=== PATIENT | female | born 1990 | race Caucasian/White ===

== ENCOUNTER 2019-03-09 23:14 | Emergency (ER) | payer MEDICAID ==
[~2019-03-09] VITALS: Ht 165.1 cm; Wt 64.2 kg
[2019-03-09 23:17] VITALS: BP 130/76
[2019-03-09] MEDS ORDERED: diphenhydrAMINE 50 mg/ml inj IV STA (23:28)
[2019-03-09] MEDS ORDERED: diphenhydrAMINE 50 mg/ml inj IV ONE (23:35)
[2019-03-10] MEDS ORDERED: dexamethasone 4mg/ml inj IM ONE (00:25)
[2019-03-10] MEDS ORDERED: HYDR-3686 PO (00:47)
== END 2019-03-10 01:12 | disposition home or self-care (01) ==
LOC: ER 23:15
DX: R22.0 Localized swelling, mass and lump, head (principal); Z79.899 Other long term (current) drug therapy
CPT/HCPCS: 96372; 96374; 99283; J1100; J1200

== ENCOUNTER 2023-07-28 15:28 | Inpatient (IN) | payer MEDICAID ==
[~2023-07-28] VITALS: Ht 165.1 cm; Wt 61.4 kg
[2023-07-28] MEDS ORDERED: ondansetron/PF 4mg/2ml inj IV ONE (18:40)
[2023-07-28] MEDS ORDERED: normal saline 1000ML IV soln IVB ONE (18:40)
[2023-07-28] MEDS ORDERED: morphine 4 MG/ML inj SYRINge IV ONE (18:40)
[2023-07-28 19:12] LABS: BASOPHILS # (AUTO) 0.1 X10'3 (0-0.2); BASOPHILS % (AUTO) 0.9 % (0-1); EOSINOPHILS % (AUTO) 0.4 % (0-6); HEMATOCRIT 42.6 % (35.0-45.0); HEMOGLOBIN 13.9 g/dl (12.0-16.0); LYMPHOCYTES # (AUTO) 2.6 X10'3 (1.1-4.8); LYMPHOCYTES % (AUTO) 23.2 % (21-51); MEAN CORPUSCULAR HEMOGLOBIN 30.1 PG (27.0-31.0); MEAN CORPUSCULAR HGB CONC 32.7 g/dL (33.0-36.5); MEAN PLATELET VOLUME 7.3 FL (7.4-10.4); MONOCYTES # (AUTO) 0.9 X10'3 (0-0.9); MONOCYTES % (AUTO) 7.8 % (2-12); NEUTROPHILS # (AUTO) 7.5 X10'3 (1.8-7.7); NEUTROPHILS % (AUTO) 67.7 % (42-75); PLATELET COUNT 408 X10'3 (140-440); RED BLOOD COUNT 4.63 X10'6 (4.20-5.60); RED CELL DISTRIBUTION WIDTH 14.7 % (11.5-14.5); WHITE BLOOD COUNT 11.1 X10'3 (4.5-11.0)
[2023-07-28 19:23] LABS: HCG SERUM QL NEGATIVE
[2023-07-28 19:26] LABS: ALANINE AMINOTRANSFERASE 18 U/L (12-78); ALBUMIN 4.4 G/DL (3.4-5.0); ALBUMIN/GLOBULIN RATIO 1.3 (1.1-1.5); ALKALINE PHOSPHATASE 49 IU/L (46-116); ANION GAP 11 (8-16); ASPARTATE AMINO TRANSFERASE 15 U/L (10-37); BILIRUBIN,TOTAL 1.8 MG/DL (0.1-1.0); BLOOD UREA NITROGEN 9 MG/DL (7-18); BUN/CREATININE RATIO 10.2 (10.0-20.0); CHLORIDE 101 MMOL/L (99-107); CREATININE 0.88 MG/DL (0.40-0.90); GLUCOSE 76 MG/DL (70-104); LIPASE 61 U/L (73-393); POTASSIUM 4.1 MMOL/L (3.5-5.1); SODIUM 140 MMOL/L (135-145); TOTAL CARBON DIOXIDE 28.2 MMOL/L (24-32); TOTAL PROTEIN 7.8 G/DL (6.4-8.2); eCRCL 82 ML/MIN; eGFR 74 ML/MIN
[2023-07-28 19:29] LABS: BILIRUBIN,URINE NEGATIVE (Neg); CLARITY,URINE CLEAR (Clear); COLOR,URINE YELLOW (Yellow); GLUCOSE, URINE NEGATIVE (Neg); KETONES,URINE 40 mg/dl (Neg); LEUKOCYTE ESTERASE ,URINE NEGATIVE (Neg); NITRITES, URINE NEGATIVE (Neg); OCCULT BLOOD,URINE NEGATIVE (Neg); PROTEIN,URINE NEGATIVE (Neg); UROBILINOGEN,URINE 0.2 E.U/dL (0.2-1.0)
[2023-07-28 19:36] LABS: UA COLLECTION TYPE CLN CATCH MIDSTREAM
[2023-07-28] MEDS ORDERED: potassium Cl 20 mEq SR tablet PO PRN ×2 (21:20)
[2023-07-28] MEDS ORDERED: potassium Cl 40MEQ/1/2NS 520ml 520 ML IV PRN (21:20)
[2023-07-28] MEDS ORDERED: morphine 2 MG/ML inj. syringe IV PRN (21:20)
[2023-07-28] MEDS ORDERED: ondansetron/PF 4mg/2ml inj IV PRN (21:20)
[2023-07-28] MEDS ORDERED: acetaminophen 325mg tablet PO PRN (21:20)
[2023-07-28 22:35] VITALS: BP 118/54; PULSE 61; RESP 16; TEMP 98.1; O2SAT 99
[2023-07-28 23:30] VITALS: RESP 16; O2SAT 99
[2023-07-28] MEDS: normal saline 1000ml 1,000 ML IV SCH (23:43)
[2023-07-28] MEDS: morphine 2 MG/ML inj. syringe IV PRN (23:52)
[2023-07-29 07:49] LABS: MAGNESIUM 1.7 MG/DL (1.5-2.4); POTASSIUM 3.8 MMOL/L (3.5-5.1)
[2023-07-29 08:00] VITALS: RESP 16; O2SAT 98
[2023-07-29] MEDS: docusate sod 100mg capsule PO SCH ×3 (08:00→19:29)
[2023-07-29] MEDS: K and/or MAG REPLACEMENT MC SCH ×2 (08:00→20:00)
[2023-07-29] MEDS: normal saline 1000ml 1,000 ML IV SCH ×2 (08:33→19:06)
[2023-07-29] MEDS: morphine 2 MG/ML inj. syringe IV PRN ×4 (09:12→23:15)
[2023-07-29 09:28] LABS: THYROID STIMULATING HORMONE 1.48 ulU/ml (0.34-4.50)
[2023-07-29 10:00] VITALS: BP 106/56; PULSE 72; RESP 15; TEMP 97.9; O2SAT 99
[2023-07-29] MEDS ORDERED: pantoprazole 40mg Tablet.DR PO ONE (11:10)
[2023-07-29] MEDS ORDERED: CALC-723 PO (12:46)
[2023-07-29] MEDS ORDERED: CHLO118M PO (12:46)
[2023-07-29] MEDS ORDERED: MULT-1085 PO (12:46)
[2023-07-29] MEDS ORDERED: MEGA PO (12:46)
[2023-07-29] MEDS ORDERED: BUPIVAcaine/PF 2.5 mg/ml (0.25%) 30ml vial ONE (13:29)
[2023-07-29] MEDS ORDERED: bacitracin 15gm ointment TP ONE (13:29)
[2023-07-29] MEDS: magnesium hydroxide 30ml (MOM) UD suspension PO PRN ×2 (19:07→21:23)
[2023-07-29 22:00] VITALS: BP 138/67; PULSE 68; RESP 16; TEMP 98; O2SAT 98
[2023-07-29] MEDS ORDERED: bisacodyl 10mg suppository rectal RC PRN (23:25)
[2023-07-30] VITALS (19 sets, daily range): BP systolic 100–145; BP diastolic 46–98; PULSE 53–76; RESP 12–20; TEMP 96.7–98.4; O2SAT 96–100
[2023-07-30] MEDS: normal saline 1000ml 1,000 ML IV SCH ×3 (05:00→20:53)
[2023-07-30 05:24] LABS: MAGNESIUM 1.9 MG/DL (1.5-2.4); POTASSIUM 3.9 MMOL/L (3.5-5.1)
[2023-07-30] MEDS: K and/or MAG REPLACEMENT MC SCH ×2 (08:00→20:00)
[2023-07-30] MEDS: pantoprazole 40mg Tablet.DR PO SCH (08:07)
[2023-07-30] MEDS: docusate sod 100mg capsule PO SCH ×2 (08:07→20:39)
[2023-07-30] MEDS: morphine 2 MG/ML inj. syringe IV PRN ×3 (08:08→20:38)
[2023-07-30] MEDS ORDERED: BUPIVAcaine/PF 2.5 mg/ml (0.25%) 30ml vial ONE (10:33)
[2023-07-30] MEDS ORDERED: fentaNYL/PF 50MCG/1 ML 2ML syringe ONE (12:58)
[2023-07-30] MEDS ORDERED: propofol inj 20 ML IV ONE (12:58)
[2023-07-30] MEDS ORDERED: midazolam 1 mg/ML 2ml injection ONE (12:58)
[2023-07-30] MEDS ORDERED: ceFAZolin 1000mg inj ONE ×2 (13:09)
[2023-07-30] MEDS ORDERED: dexamethasone sod phosphate 4mg/ml inj. ONE (13:10)
[2023-07-30] MEDS ORDERED: ringers solution, lacted 1,000 ML IV SCH (13:55)
[2023-07-30] MEDS ORDERED: morphine 2 MG/ML inj. syringe IV PRN (13:55)
[2023-07-30] MEDS ORDERED: morphine 4 MG/ML inj SYRINge IV PRN (13:55)
[2023-07-30] MEDS ORDERED: meperidine/PF 25mg/ml syringe IV PRN ×3 (13:55)
[2023-07-30] MEDS ORDERED: proCHLORperazine 10 MG/2 ml inj IV PRN (13:55)
[2023-07-30] MEDS ORDERED: ondansetron/PF 4mg/2ml inj IV PRN (13:55)
[2023-07-30] MEDS ORDERED: meperidine/PF 25mg/ml syringe ONE (13:57)
[2023-07-30] MEDS ORDERED: acetaminophen 1,000mg/100ml IV 100 ML IV ONE (14:00)
[2023-07-30] MEDS ORDERED: PEG 3350/Na sulf,bicarb,Cl/KCl oral sol 4 liter bottle PO SCH (15:25)
[2023-07-30] MEDS: ketorolac trometh. 30mg/ml inj. IV SCH (19:49)
[2023-07-31 02:07] VITALS: BP 106/40; PULSE 62; RESP 18; TEMP 97.5; O2SAT 99
[2023-07-31] MEDS: ketorolac trometh. 30mg/ml inj. IV SCH ×3 (02:56→14:32)
[2023-07-31] MEDS: morphine 2 MG/ML inj. syringe IV PRN ×3 (05:18→13:26)
[2023-07-31 06:00] VITALS: BP 107/60; PULSE 56; RESP 17; TEMP 97.3; O2SAT 99
[2023-07-31] MEDS: K and/or MAG REPLACEMENT MC SCH (07:22)
[2023-07-31] MEDS: docusate sod 100mg capsule PO SCH (07:25)
[2023-07-31] MEDS: pantoprazole 40mg Tablet.DR PO SCH (07:25)
[2023-07-31] MEDS: normal saline 1000ml 1,000 ML IV SCH (09:20)
[2023-07-31 10:00] VITALS: BP 112/64; PULSE 68; RESP 20; TEMP 98.1; O2SAT 100
[2023-07-31] MEDS ORDERED: PANT40TA54 PO (12:45)
[2023-07-31] MEDS ORDERED: HYDR-3965 PO (12:45)
[2023-07-31] MEDS ORDERED: POLY17PO10 PO (12:45)
[2023-07-31] MEDS ORDERED: DOCU-148 PO (12:45)
[2023-07-31 14:32] VITALS: RESP 14
== END 2023-07-31 15:40 | disposition home or self-care (01) | DRG 228 ==
LOC: ER 15:28 → OBSVTOIN 21:25 → ED HOLD 21:25 → ORTHO 4S 22:30
PROVIDERS: ADMIT Internal Medicine; ATTEND Family Medicine
PROC: 0WQF0ZZ Repair Abdominal Wall, Open Approach (ICD-10-PCS; principal; 2023-07-30 09:53)
DX: K42.0 Umbilical hernia with obstruction, without gangrene (principal); J45.909 Unspecified asthma, uncomplicated; Z79.899 Other long term (current) drug therapy; Z88.5 Allergy status to narcotic agent; Z88.8 Allergy status to other drugs, medicaments and biological substances
CPT/HCPCS: 36415; 74176; 80053; 81003; 82948; 83690; 83735; 84132; 84443; 84703; 85025; 87045; 87046; 87081; 89055; 93005; 99285; A4615; A6449; G0378; J0131; J0690; J1100; J1885; J2175; J2250; J2270; J2405; J2704; J3010; J3490; J7030

== ENCOUNTER 2025-05-22 14:49 | Emergency (ER) | payer MEDICAID ==
[~2025-05-22] VITALS: Ht 165.1 cm; Wt 61.4 kg
[~2025-05-22 14:49] MED LIST: CALC-723 PO; CHLO118M PO; DOCU-148 PO; MEGA PO; MULT-1085 PO; PANT40TA54 PO
[2025-05-22 15:22] VITALS: BP 144/83; PULSE 95; O2SAT 99
--- NOTE | 2025-05-22 15:34 | Physician Documentation ---
History of Present Illness ~ General Chief Complaint: Pain Stated Complaint: "FLARE UP" Time Seen by MD: 16:06 History of Present Illness Initial Comments This is a 34-year-old female who reports she is having a flare-up of Ani- Danlos related pain. Patient reports pain is all over her body. Patient reports that she is awaiting specialists referral to [facility] and an appointment with a painter railroad car. History as above: This patient was very tearful throughout my interview. Reports having multiple referrals and specialists along with the pain management getting involved with her care. He reports having ongoing dislocations however while in the ED she is able to walk and move her arms with out difficulty. She presents as being very emotional secondary to her diagnosis of Ani Danlos Medication Reconciliation Allergies: Coded Allergies: clindamycin (Verified Allergy, Unknown, 07/28/23) codeine (Verified Adverse Reaction, Intermediate, ITCHING, 07/30/23) Scheduled Calcium Carbonate/Vitamin D3 (Calcium 500 + D3 Tablet), 1 TAB PO DAILY, (Reported) Chlorhexidine Gluconate (Peridex), 15 ML PO Q12H, (Reported) Docusate Sodium (Colace), 1 CAP PO Q12H Multivitamin (Multi Vitamin Daily), 1 TAB PO DAILY, (Reported) Pantoprazole Sodium (Pantoprazole Sodium), 40 MG PO BKF [dolores mg drop], 1 DROP PO DAILY, (Reported) Scheduled PRN Hydrocodone Bit/Acetaminophen 5/325 MG ([place] 5/325 MG), 1 TAB PO Q6H PRN for pain Past Medical History Past Medical History: Hernia Past Surgical History: noncontributory Patient History: Patient reports no known family medical history. Alcohol Use: Rarely Drug Use: none Lives with: Family Lives In: Home Review of Systems All Other Systems at this time: Reviewed and Negative ROS As stated above in the HPI, otherwise all systems are reviewed and negative. Physical Exam Physical Exam Vital Signs: Temperature: 98.3, Source: Temporal, Heart Rate: 95, Respiratory Rate: 18, BP: 144/83, Pulse Oximetry: 99, Weight: 61.360 Oxygen Flow Rate: 0 Physical Exam VITALS: Reviewed and as above. GENERAL: Alert, nontoxic appearing, no apparent distress. RESPIRATORY: No increased work of breathing, no respiratory distress, speaking in full clear sentences MUSCULOSKELETAL: No obvious deformity full range of motion without difficulty SKIN: NEURO: Neuro intact PSYCH: Progress Results/Orders Results/Orders Vital Signs 05/22/25 05/22/25 05/22/25 05/22/25 15:22 16:51 16:51 17:16 Temp 98.3 98.3 Pulse 95 Resp 18 16 16 B/P (MAP) 144/83 Pulse Ox 99 O2 Flow Rate 0 Medical Decision Making Findings MSE performed in triage and patient returned to ED lobby by nursing staff Based on patient's reported symptoms, though it sounds as though she has the appropriate workup and referrals to the appropriate specialists. However I do suspect there is a large Psychiatric element to her presentation. Did treat her for pain while in the ED but I do not see any reason to pursue further imaging as in the MRI that she requested. Departure Disposition: HOME / SELF CARE / HOMELESS Impression: Primary Impression: Chronic pain disorder Condition: Stable Discharge Instructions: Chronic Pain Management Referrals: NO PRIMARY CARE PROVIDER (PCP) Prescriptions Hydrocodone Bit/Acetaminophen 5/325 MG ([place] 5/325 MG) 5 Mg/325 Mg Tablet 1 TAB PO Q6H PRN for pain, #14 TAB Prov: PAUL OVIEDO NP 05/22/25 Signature Scribe Signature: r Attestation: Scribed for Paul Oviedo Geropsychologist by Paul Ty NP . 05/22/25 23:13 MT AQUINO May 22, 2025 15:34 PAUL OVIEDO NP May 22, 2025 16:19 MAGDALENA NUNEZ MD May 23, 2025 19:51
[2025-05-22] MEDS ORDERED: HYDR-3965 PO (16:18)
[2025-05-22 16:51] VITALS: RESP 16
[2025-05-22] MEDS: morphine 4 MG/ML inj SYRINge IM ONE (16:51)
[2025-05-22] MEDS: ketorolac trometh 30MG/ML vial 30 MG/ML VIAL IM ONE (16:51)
[2025-05-22] MEDS: ketorolac trometh 15mg/ml vial 15 MG/ML ML IM ONE (16:52)
[2025-05-22 17:16] VITALS: TEMP 98.3
== END 2025-05-22 17:18 | disposition home or self-care (01) ==
LOC: ER 14:49
DX: G89.29 Other chronic pain (principal); Q79.60 Ehlers-Danlos syndrome, unspecified; Z88.1 Allergy status to other antibiotic agents; Z88.5 Allergy status to narcotic agent
CPT/HCPCS: 96372; 99284; J1885; J2270

== ENCOUNTER 2025-05-27 10:40 | Emergency (ER) | payer MEDICAID ==
[~2025-05-27] VITALS: Ht 165.1 cm; Wt 61.4 kg
[~2025-05-27 10:40] MED LIST changes: +HYDR-3965 PO
--- NOTE | 2025-05-27 11:35 | Physician Documentation ---
History of Present Illness ~ Chief Complaint: See Chief Complaint Stated Complaint: ALL OVER BODY PAIN Time Seen by MD: 11:43 HPI This is a 34-year-old female returns to the ED with ongoing joint pain and various other complaints. She was seen last week and fully evaluated. She has outpatient referrals in place along with connections to [facility]. She presents today stating she would like to circumvent the outpatient referrals in order to get care sooner ADDITIONAL NOTE BY JASVIR MENESES, DO: I TOOK OVER THE CARE OF THIS PATIENT FROM PREVIOUS PHYSICIAN. I REVIEWED ANY PREVIOUS NOTES AVAILABLE, OBTAIN MY OWN HISTORY, REVIEW OF SYSTEMS AND PHYSICAL EXAMINATION WAS PERFORMED BY MYSELF. 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 She states that she used to be on pain management when she lived in [facility], however five years ago she moved here to [facility] and has been off opioid meds. She attempted to treat her symptoms realistically. However she feels that her chronic pain is getting only worse especially for the last year. She currently being seen by PCP has a clinic that does not hold [place] license and does not prescribe any controlled substances. They referred her to pain management Clinic, however she feels that she is not able to tolerate her pain. She has not been referred to echocardiogram yet. She has been referred to middle school science teacher at [facility], but does not know how long the weight is going to be. She reports chronic whole body pain especially in her neck head. No particular palliating or aggravating factors. Magnesium, various [id number] medications are not seem to be helping sufficiently. She sees chiropractor and a massage therapist. This also does not seem to be helping. Tetanus witin 5 years: Yes Medication Reconciliation Allergies: Coded Allergies: clindamycin (Verified Allergy, Unknown, 07/28/23) codeine (Verified Adverse Reaction, Intermediate, ITCHING, 07/30/23) Scheduled Calcium Carbonate/Vitamin D3 (Calcium 500 + D3 Tablet), 1 TAB PO DAILY, (Reported) Chlorhexidine Gluconate (Peridex), 15 ML PO Q12H, (Reported) Docusate Sodium (Colace), 1 CAP PO Q12H Multivitamin (Multi Vitamin Daily), 1 TAB PO DAILY, (Reported) Pantoprazole Sodium (Pantoprazole Sodium), 40 MG PO BKF [dolores mg drop], 1 DROP PO DAILY, (Reported) Scheduled PRN Hydrocodone Bit/Acetaminophen 5/325 MG ([place] 5/325 MG), 1 TAB PO Q6H PRN for pain Past Medical History Past Medical History: Hernia Past Surgical History: noncontributory Patient History: Patient reports no known family medical history. Alcohol Use: Rarely Drug Use: none Lives with: Family Lives In: Home Review of Systems ROS 10 point review of systems was performed and unless noted above in HPI is negative for acute process/complaint. Physical Exam Vital Signs: Temperature: 99.0, Source: Temporal, Heart Rate: 93, Respiratory Rate: 16, BP: 142/85, Pulse Oximetry: 100, Weight: 61.360 Physical Exam Physical examination: GENERAL: Awake, alert, oriented, GCS 15, no apparent distress, non-toxic appearing, answers questions, follows commands appropriately. HEENT: Atraumatic, normocephalic, pupils equal, extraocular muscles intact Active gross movements, sclerae anicteric, mucus membranes moist, no stridor. NECK: Midline, no JVD CARDIOVASCULAR: Good skin perfusion without evidence of pallor, mottling. PULMONARY: Nonlabored, symmetric chest rise, no audible wheezing, no accessory muscle use, no respiratory distress, speaking in full sentences. GASTROINTESTINAL: Not distended. NEUROLOGIC: Lucid with normal mental status. Normal facial symmetry. Moves all extremities symmetrically and with purpose. No truncal ataxia. Speech is fluid without evidence of dysarthria or aphasia, no focal deficits appreciated. EXTREMITIES: Acute deformities Skin: warm, dry PSYCHIATRIC: Normal affect, normal insight, normal concentration. Focused exam: [] Progress Results/Orders Results/Orders Vital Signs 05/27/25 05/27/25 05/27/25 10:47 12:36 12:36 Temp 99.0 99.0 Pulse 93 70 Resp 16 15 16 B/P (MAP) 142/85 114/74 (87) Pulse Ox 100 99 O2 Flow Rate 0 Medical Decision Making Findings Facility Status: ED Holds, [facility] process The plan was discussed with the patient, who demonstrates clear understanding of the plan and is in agreement with the plan unless otherwise noted in the chart. All questions have been answered, all concerns were addressed unless otherwise documented. I was available throughout their ED stay for frequent reassessment and questions. Differential Diagnoses (considered and possible or likely): [Chronic pain, Ani-Danlos syndrome, hypermobility, clinically not consistent with a aortic dissection, ACS, pneumonia, occult bacteremia, rhabdomyolysis, myositis.] Narcotic seeking behavior has been considered as well but less likely. ??Differential Diagnoses (considered and unlikely, not requiring evaluation currently): [No evidence of focal neurologic deficits.] MDM Data Please see [facility] for the following: Independent Historians and external Records Review. Historian: [Patient] Independent Historians: ?[Record review including cures report] Medication Management: [Reviewed medication list] Social History and determinants: [Reviewed] Please see the body of the note for the following: Any independent interpretations of ECG, imaging studies. All vitals signs/haemodynamics, ordered tests were independently reviewed and interpreted by myself. Nursing triage complaint and vitals reviewed, additional nursing notes were reviewed as available and I agree unless otherwise noted or documented in contradiction in the chart Vital Signs: Independently reviewed Labs: Independently interpreted Imaging: Independently interpreted Old Medical Records: Independently reviewed, see [facility] for relevant summary and information Pulse Oximetry: [99%] interpreted as [normal on room air] by me Additionally notably showing: [Hemodynamically stable] Tests considered but not ordered include: [Hematologic workup and imaging has been considered but does not appear to be necessary given clinical nature of diagnosis] Social Determinants of Health Impact: Patient was evaluated in [facility] [place] to healthcare due to below par ratio of patient to medical providers. [] Comorbid Conditions Impacting Present Evaluation and Care/Treatment: [Ani- Danlos syndrome] Management Discussions with other Healthcare Providers: [None] Treatment and Disposition Medication Management (Given or considered): [Pain management]. See EMR for details Consideration for Hospitalization/Escalation/Deescalation of Care: Admission for observation has been considered, [however the patient is able to tolerate p.o., their symptoms are controlled, they are able to rely on oral medications, and their chief complaint/diagnosis can be managed on outpatient basis.] ?ED Course:?[No clinical deterioration.] ?Shared decision making:?[Patient is hemodynamically stable for discharge home with follow with their primary care provider. [ ] Specific and cautious return precautions provided and discussed with full understanding. Any incidental findi ngs were also discussed and follow up recommendations given. [] All questions answered. Patient/family were able to verbalize back return precautions. Patient/family agree to plan. Copies of imaging and laboratory studies were provided.] Code status:?FULL Please see the full Electronic Medical Record for full details of nursing documentation, medications list, other records of complete past medical history and conditions, vital signs, laboratory studies, and any radiologic study interpretations by radiologists. Portions of this note were completed using [employer] dictation software and as a result there may exist minor errors in spe lling. I have reviewed elements of past family and social history and agree as included in note. Departure Disposition: HOME / SELF CARE / HOMELESS Impression: Primary Impression: Chronic pain disorder Condition: Improved Discharge Instructions: Chronic Pain, Adult Referrals: NO PRIMARY CARE PROVIDER (PCP) Prescriptions Hydrocodone Bit/Acetaminophen 5/325 MG ([place] 5/325 MG) 5 Mg/325 Mg Tablet 1 TAB PO Q6H PRN for pain for 7 Days, #28 TAB Prov: JASVIR MENESES DO 05/27/25 Education Educated: Patient, Other Educated regarding: diagnosis, treatment, prognosis, need for follow up Signature Scribe Signature: No scribe Attestation: This note accurately reflects clinical decisions, work performed by myself, DO SHERRELL Vela JUSTIN H NP May 27, 2025 11:35 JASVIR MENESES DO May 27, 2025 14:51
[2025-05-27] MEDS ORDERED: HYDR-3965 PO (14:51)
[2025-05-27] MEDS: HYDROmorphone 1 mg/ml syringe IM ONE (15:10)
[2025-05-27 15:20] VITALS: BP 116/71; PULSE 70; RESP 16; TEMP 98; O2SAT 100
== END 2025-05-27 15:23 | disposition home or self-care (01) ==
LOC: ER 10:41
DX: G89.29 Other chronic pain (principal); Z88.1 Allergy status to other antibiotic agents; Z88.5 Allergy status to narcotic agent; Z79.899 Other long term (current) drug therapy
CPT/HCPCS: 96372; 99283; J1171

== ENCOUNTER 2025-06-04 17:02 | Emergency (ER) | payer MEDICAID ==
[~2025-06-04] VITALS: Ht 165.1 cm; Wt 61.4 kg
[2025-06-04 18:01] LABS: LEUKOCYTE ESTERASE ,URINE NEGATIVE (Neg); NITRITES, URINE NEGATIVE (Neg); OCCULT BLOOD,URINE NEGATIVE (Neg)
[2025-06-04 18:05] LABS: UA COLLECTION TYPE CLN CATCH MIDSTREAM
[2025-06-04 18:08] LABS: URINE HCG NEGATIVE (NEG)
[2025-06-04 18:22] LABS: MEAN PLATELET VOLUME 7.1 FL (7.4-10.4); RED CELL DISTRIBUTION WIDTH 13.6 % (11.5-14.5)
[2025-06-04 18:38] LABS: CREATININE 0.92 MG/DL (0.40-0.90); TOTAL CARBON DIOXIDE 27.4 MMOL/L (24-32); eCRCL 77 ML/MIN; eGFR 69 ML/MIN
--- NOTE | 2025-06-04 21:11 | Physician Documentation ---
History of Present Illness ~ Chief Complaint: Abdominal Pain Stated Complaint: ABD PAIN Time Seen by MD: 18:39 Primary Medical Doctor: MORIS GARCIA Mode of Arrival: POV HPI Patient is seen today with complaints of having Ani-Danlos syndrome and having significant rib pain and joint pain. Patient states she is trying to get in with a specialist in [facility]. Patient denies any nausea or vomiting or diarrhea. Patient denies any fevers or chills and has no other concern or complaint at this time. Main concern today is pain control. Patient states she does not currently have a active prescription for pain meds and is not currently working with any primary director of health care marketing for pain control or paint mixer. Medication Reconciliation Allergies: Coded Allergies: clindamycin (Verified Allergy, Unknown, 07/28/23) codeine (Verified Adverse Reaction, Intermediate, ITCHING, 07/30/23) Scheduled Calcium Carbonate/Vitamin D3 (Calcium 500 + D3 Tablet), 1 TAB PO DAILY, (Reported) Chlorhexidine Gluconate (Peridex), 15 ML PO Q12H, (Reported) Docusate Sodium (Colace), 1 CAP PO Q12H Multivitamin (Multi Vitamin Daily), 1 TAB PO DAILY, (Reported) Pantoprazole Sodium (Pantoprazole Sodium), 40 MG PO BKF [dolores mg drop], 1 DROP PO DAILY, (Reported) Scheduled PRN Hydrocodone Bit/Acetaminophen 5/325 MG ([place] 5/325 MG), 1 TAB PO Q6H PRN for pa in Hydrocodone Bit/Acetaminophen (Hydrocodone-Apap 10-325 Tablet), 1 TAB PO TID PRN PRN for pain Discontinued Medications Hydrocodone Bit/Acetaminophen 5/325 MG ([place] 5/325 MG), 1 TAB PO Q6H PRN for pain Discontinued Reason: Auto Discontinued Past Medical History Past Medical History: Hernia Past Surgical History: noncontributory Patient History: Patient reports no known family medical history. Alcohol Use: Rarely Drug Use: none Lives with: Family Lives In: Home Review of Systems Constitutional: Denies: chills, fever, weakness Eyes: Denies: pain, blurred vision ENT: Denies: ear pain, nose pain, throat pain, mouth pain Respiratory: Denies: cough, shortness of breath Cardiovascular: Denies: chest pain, palpitations Gastrointestinal: Denies: abdominal pain, nausea, vomiting Genitourinary: Denies: burning, dysuria Female Genitalia: Denies: vaginal discharge, pelvic pain Neurological: Denies: headache, dizziness Musculoskeletal: Denies: pain, swelling Integumentary: Denies: rash, lesions Allergic/Immunologic: Denies: hives, itching Hematologic/Lymphatic: Denies: no symptoms reported Psychiatric: Denies: depression, anxiety Physical Exam Vital Signs: Temperature: 98.7, Source: Temporal, Heart Rate: 68, Respiratory Rate: 18, BP: 127/81, Pulse Oximetry: 100, Weight: 61.360 Oxygen Flow Rate: 0 Physical Exam General: Awake and Alert, no acute distress. HEENT: Conjunctiva pink, Sclera clear, Mucus Membranes moist. Neck: Supple without masses and tenderness. Resp: Unlabored. Lungs clear to auscultation bilaterally. Heart: Regular Rate and rhythm, normal S1 and S2 without murmur, rub or gallop. Abdomen: Soft and non tender no organomegaly Musculoskeletal: Patient does have significant tenderness to palpation of the ribs and sternal area. Patient has no sign of swelling or erythema of the joints of the shoulders or upper extremities or lower extremities. Patient is neurovascularly intact distally of bilateral upper and lower extremities. Function is intact distally. Extremities: No cyanosis,clubbing or edema. Skin: Warm and Dry. Progress Results/Orders Results/Orders Completed Orders - AYE PHILLIPS PAC Lacticsepsis (06/04/25 19:47) Procalcitonin (06/04/25 19:47) Hydrocodone/Apap 10/325 ([place] 10/325mg (06/04/25 20:58) Medications Received in ER Medications (Trade) Dose Ordered Sig/Yelena Route PRN Reason Start Time Stop Time Status Last Admin Dose Admin ([place] 10/325mg tab) 1 tab ONCE STAT PO 06/04/25 20:58 06/04/25 21:00 DC 06/04/25 21:21 1 TAB Vital Signs 06/04/25 06/04/25 06/04/25 06/04/25 17:12 19:15 19:16 21:39 Temp 98.7 98.9 Pulse 84 68 70 Resp 18 18 18 16 B/P (MAP) 135/75 127/81 (96) 124/80 Pulse Ox 99 100 99 O2 Flow Rate 0 0 Laboratory Tests Test 06/04/25 17:55 06/04/25 18:03 Urine Specimen Description Cln catch midstream Urine Color Yellow Urine Clarity Clear Urine pH 6.5 Urine Specific Mccoll <=1.005 Urine Protein Negative Urine Glucose (UA) Negative Urine Ketones Negative Urine Occult Blood Negative Urine Nitrite Negative Urine Bilirubin Negative Urine Urobilinogen 0.2 Urine Leukocyte Esterase Negative Urine Culture Indicated Not ind Volume Urine Centrifuged 10 ml Urine HCG, Qualitative Negative Urine Comment White Blood Count 7.6 Red Blood Count 4.42 Hemoglobin 13.6 Hematocrit 39.9 Mean Corpuscular Volume 90.3 Mean Corpuscular Hemoglobin 30.9 Mean Corpuscular Hemoglobin Concent 34.2 Red Cell Distribution Width 13.6 Platelet Count 300 Mean Platelet Volume 7.1 L Neutrophils (%) (Auto) 55.8 Lymphocytes (%) (Auto) 35.3 Monocytes (%) (Auto) 7.3 Eosinophils (%) (Auto) 0.6 Basophils (%) (Auto) 1.0 Neutrophils # (Auto) 4.2 Lymphocytes # (Auto) 2.7 Monocytes # (Auto) 0.6 Eosinophils # (Auto) 0.0 Basophils # (Auto) 0.1 CBC Comment Sodium Level 140 Potassium Level 3.3 L Chloride Level 105 Carbon Dioxide Level 27.4 Anion Gap 8 Blood Urea Nitrogen 10 Creatinine 0.92 H Estimated GFR/1.73 m2 69 BUN/Creatinine Ratio 10.9 Glucose Level 81 Lactic Acid Level 1.0 Calcium Level 8.6 Total Bilirubin 1.7 H Aspartate Amino Transf (AST/SGOT) 20 Alanine Aminotransferase (ALT/SGPT) 28 Alkaline Phosphatase 61 Total Protein 7.0 Albumin 4.1 Globulin 2.9 Albumin/Globulin Ratio 1.4 Lipase 24 Procalcitonin < 0.05 Chemistry Comments Medical Decision Making Findings Patient is seen today with complaints of having Ani-Danlos syndrome and having significant rib pain and joint pain. Patient states she is trying to get in with a specialist in [facility]. Patient denies any nausea or vomiting or diarrhea. Patient denies any fevers or chills and has no other concern or complaint at this time. Main concern today is pain control. Patient states she does not currently have a active prescription for pain meds and is not currently working with any primary director of health care marketing for pain control or paint mixer. Patient's lab work was largely unremarkable. Patient was given dose of [place] 10/325 mg, one tab 3 times a day for seven days. Patient will follow up with primary care for further eval and treatment. I strongly advised patient that she needs to pursue further pain management control through her primary care and/or paint mixer. Patient voiced understanding. Return to ED with any worsening, concerning or changing symptoms. Departure Disposition: HOME / SELF CARE / HOMELESS Impression: Primary Impression: Ani-Danlos syndrome Additional Impression: Chronic pain disorder Condition: Improved Discharge Instructions: Chronic Pain, Adult Additional Instructions: Patient's lab work was largely unremarkable. Patient was given dose of [place] 10/325 mg, one tab 3 times a day for seven days. Patient will follow up with primary care for further eval and treatment. I strongly advised patient that she needs to pursue further pain management control through her primary care and/or paint mixer. Patient voiced understanding. Return to ED with any worsening, concerning or changing symptoms. Referrals: NO PRIMARY CARE PROVIDER (PCP) Prescriptions Hydrocodone Bit/Acetaminophen (Hydrocodone-Apap 10-325 Tablet) 10mg/325mg Tablet 1 TAB PO TID PRN PRN for pain for 7 Days, #21 TAB Prov: AYE PHILLIPS 06/04/25 Signature Scribe Signature: No scribe Attestation: No scribe AYE PHILLIPS PAC Jun 04, 2025 21:11
[2025-06-04] MEDS ORDERED: HYDR-3973 PO (21:12)
[2025-06-04] MEDS: HYDROcodone/acetaminophen 10/325mg tab PO STA (21:21)
[2025-06-04 21:39] VITALS: BP 124/80; PULSE 70; RESP 16; TEMP 98.9; O2SAT 99
== END 2025-06-04 21:40 | disposition home or self-care (01) ==
LOC: ER 17:02
DX: Q79.60 Ehlers-Danlos syndrome, unspecified (principal); R07.81 Pleurodynia; Z88.1 Allergy status to other antibiotic agents; Z88.5 Allergy status to narcotic agent
CPT/HCPCS: 36415; 80053; 81003; 81025; 83605; 83690; 84145; 85025; 99283

== ENCOUNTER 2025-10-02 03:11 | Emergency (ER) | payer MEDICAID ==
[~2025-10-02] VITALS: Ht 165.1 cm; Wt 63.5 kg
[~2025-10-02 03:11] MED LIST changes: -HYDR-3965 PO
--- NOTE | 2025-10-02 03:52 | Physician Documentation ---
History of Present Illness ~ Chief Complaint: Vomiting Stated Complaint: ABDOMINAL PAIN,VOMITING,DIERRHEA Time Seen by MD: 03:50 Primary Medical Doctor: MORIS GARCIA Mode of Arrival: POV HPI Patient presents to the emergency room with symptoms of vomiting and diarrhea. Onset this evening. Patient did have a pot luck earlier today with multiple foods. Unknown if he had hemodialysis sick. Tried Pepto-Bismol without effect. Medication Reconciliation Allergies: Coded Allergies: clindamycin (Verified Allergy, Unknown, 07/28/23) codeine (Verified Adverse Reaction, Intermediate, ITCHING, 07/30/23) Scheduled Calcium Carbonate/Vitamin D3 (Calcium 500 + D3 Tablet), 1 TAB PO DAILY, (Reported) Chlorhexidine Gluconate (Peridex), 15 ML PO Q12H, (Reported) Docusate Sodium (Colace), 1 CAP PO Q12H Multivitamin (Multi Vitamin Daily), 1 TAB PO DAILY, (Reported) Pantoprazole Sodium (Pantoprazole Sodium), 40 MG PO BKF [dolores mg drop], 1 DROP PO DAILY, (Reported) Past Medical History Past Medical History: Hernia Past Surgical History: noncontributory Patient History: Patient reports no known family medical history. Alcohol Use: Rarely Drug Use: none Lives with: Family Lives In: Home Review of Systems ROS All review of systems negative except as per HPI Physical Exam Vital Signs: Temperature: 97.7, Source: Oral, Heart Rate: 73, Respiratory Rate: 16, BP: 127/82, Pulse Oximetry: 99, Weight: 63.500 Oxygen Flow Rate: 0 Physical Exam General: Patient is awake, alert, oriented x4 in no acute distress and well appearing.~ Head: Normocephalic and atraumatic. Eyes: Conjunctival normal. EOMI. PERRL. ENT: Mucous membranes moist. Neck: Supple, trachea is midline. Chest: Clear to auscultation bilaterally without rales, rhonchi, or wheezes. There is no accessory muscle use or retractions. Cardiac: RRR without murmurs, gallops, or rubs. Abd: Soft, nondistended, mild diffuse abdominal tenderness without peritonitis Progress Results/Orders Results/Orders Orders - WIN MARRUFO MD Urinalysis, Cult If Indicated (10/02/25 03:18) Hcg, Ur Ql (10/02/25 03:18) Normal Saline 1000ml (0.9% Sodium Chlori (10/02/25 03:55) Completed Orders - WIN MARRUFO MD Cbc/Diff (10/02/25 03:18) Lipase (10/02/25 03:18) CMP (10/02/25 03:18) Ketorolac Trometh 15mg/Ml Vial (Toradol (10/02/25 03:55) Fentanyl/Pf (Fentanyl 0.05 Mg/Ml Syringe (10/02/25 03:55) Ondansetron Inj. (Zofran 4mg/2ml Vial) (10/02/25 03:55) Metoclopramide Inj (Reglan Inj) (10/02/25 03:55) Medications Received in ER Medications (Trade) Dose Ordered Sig/Yelena Route PRN Reason Start Time Stop Time Status Last Admin Dose Admin (Toradol injection) 15 mg ONCE ONCE IV 10/02/25 03:55 10/02/25 03:56 DC 10/02/25 04:02 15 MG (fentaNYL 0.05 MG/ML syringe) 50 mcg ONCE ONCE IV 10/02/25 03:55 10/02/25 03:56 DC 10/02/25 04:03 50 MCG (Zofran 4mg/2ml vial) 4 mg ONCE ONCE IV 10/02/25 03:55 10/02/25 03:56 DC 10/02/25 04:03 4 MG (Reglan inj) 5 mg ONCE ONCE IV 10/02/25 03:55 10/02/25 03:56 DC 10/02/25 04:03 5 MG Sodium Chloride 1,000 ml @ 1,000 mls/hr ONCE ONCE IV 10/02/25 03:55 10/02/25 04:54 10/02/25 04:03 1,000 MLS/HR Vital Signs 10/02/25 10/02/25 10/02/25 10/02/25 03:23 03:26 04:02 04:37 Temp 97.7 97.7 Pulse 73 67 Resp 16 16 16 B/P (MAP) 127/82 106/59 (75) Pulse Ox 99 98 O2 Flow Rate 0 0 Laboratory Tests Test 10/02/25 03:30 White Blood Count 12.2 H Red Blood Count 4.42 Hemoglobin 13.2 Hematocrit 39.9 Mean Corpuscular Volume 90.3 Mean Corpuscular Hemoglobin 30.0 Mean Corpuscular Hemoglobin Concent 33.2 Red Cell Distribution Width 13.7 Platelet Count 336 Mean Platelet Volume 7.4 Neutrophils (%) (Auto) 84.9 H Lymphocytes (%) (Auto) 10.9 L Monocytes (%) (Auto) 3.9 Eosinophils (%) (Auto) 0 Basophils (%) (Auto) 0.3 Neutrophils # (Auto) 10.3 H Lymphocytes # (Auto) 1.3 Monocytes # (Auto) 0.5 Eosinophils # (Auto) 0.0 Basophils # (Auto) 0.0 CBC Comment Sodium Level 140 Potassium Level 3.8 Chloride Level 103 Carbon Dioxide Level 29.1 Anion Gap 8 Blood Urea Nitrogen 17 Creatinine 0.93 H Estimated GFR/1.73 m2 68 BUN/Creatinine Ratio 18.3 Glucose Level 129 H Calcium Level 8.8 Total Bilirubin 0.5 Aspartate Amino Transf (AST/SGOT) 29 Alanine Aminotransferase (ALT/SGPT) 38 Alkaline Phosphatase 53 Total Protein 7.6 Albumin 3.9 Globulin 3.7 Albumin/Globulin Ratio 1.1 Lipase 29 Chemistry Comments Medical Decision Making Additional information obtaine: old records Findings Patient presents to the emergency room for evaluation of vomiting and diarrhea. Differentials include but are not limited to gastroenteritis, food poisoning, viral syndrome, dehydration, therefore emergent labs ordered. Labs reassuring. Patient is responding to therapy. She is unable to urinate for us however given acute onset of symptoms with associated diarrhea I do not believe this is related to related to gastroenteritis. I do not feel she requires a CT scan. Patient states she feels 1000 times better Diff Dx GI Bleed:Consideration: Include: AE fistula, Angiodysplasia, Bleeding diathesis, Blood loss anemia, Carcinoma, Diverticulosis, Diverticulitis, Esophageal varicies, Esophagitis, Gastritis, Gastroenteritis, Inflammatory BD, Rosemarie-Alegria syndrome, Meckel's diverticulum, PUD, Other Diff Dx Pain:Considerations: Include: AAA, -Complete, - Incomplete, -Inevitable, -Missed, -Threatened, Abruptio placentae, Angina/ME, Aortic dissection, Appendicitis, Bowel obstruction, Cholangitis, Cholecystitis, Cholelithasis, Constipation, Diverticular disease, Dysmenorrhea, Ectopic , Esophageal rupture, Esophagitis, Gastritis/PUD, Gastroenteritis, GI hemorrhage, Hernia, Hepatitis, Inflammatory BD, Ischemic bowel, Mass, Ovarian cyst/torsion, Pancreatitis, PID, Porphyria, Trauma, intraabdominal, Urinary obstruction, Urinary tract infection, Urolithiasis, Other Diff Dx N/V/D:Considerations: Include: Appendicitis, Bowel obstruction, Dehydration, DKA, Diarrhea - bacterial, Diarrhea - parasitic, Diarrhea - viral, Diverticulitis, Diverticulosis, Drug toxicity, Electrolyte imbalance, Food poisoning, Gastroenteritis, GE reflux, GI bleed, Hepatitis, Hernia, Hypovolemia, Hypotension, Inflammatory BD, Impaction, Malnutrition, Pancreatitis, , PUD, Renal failure, Urolithiasis, Urinary obstruction, UTI, Other Diff Dx Rectal:Considerations: Include: Fissure, Fistula, Foreign body, Impaction, Perirectal abscess, Rectal prolapse, Subcutaneous abscess, Thrombosed hemorrhoid, Ulcer, UTI, Other Departure Disposition: 01 HOME / SELF CARE / HOMELESS Impression: Primary Impression: Acute gastroenteritis Condition: Improved Discharge Instructions: Nausea and Vomiting, Adult Referrals: NO PRIMARY CARE PROVIDER (PCP) Prescriptions Ondansetron 8mg ODT (Ondansetron Odt) 8 Mg Tab.rapdis 1 TAB PO Q6H for nausea/vomiting for 3 Days, #12 TAB 0 Refills Prov: WIN MARRUFO MD 10/02/25 Signature Scribe Signature: No scribe Attestation: The note accurately reflects work and decisions made by me.Win Marrufo MD 10/02/25 04:41 WIN MARRUFO MD Oct 02, 2025 03:52
[2025-10-02 03:57] LABS: MEAN PLATELET VOLUME 7.4 FL (7.4-10.4); RED CELL DISTRIBUTION WIDTH 13.7 % (11.5-14.5)
[2025-10-02 03:58] LABS: CREATININE 0.93 MG/DL (0.40-0.90); TOTAL CARBON DIOXIDE 29.1 MMOL/L (24-32); eCRCL 75 ML/MIN; eGFR 68 ML/MIN
[2025-10-02] MEDS: ketorolac trometh 15mg/ml vial 15 MG/ML ML IV ONE (04:02)
[2025-10-02] MEDS: fentaNYL/PF 50MCG/1 ML 2ML syringe IV ONE (04:03)
[2025-10-02] MEDS: normal saline 1000ml 1,000 ML IV ONE (04:03)
[2025-10-02] MEDS: metoclopramide 5 mg/ml inj IV ONE (04:03)
[2025-10-02] MEDS: ondansetron/PF 4mg/2ml inj IV ONE (04:03)
[2025-10-02 04:37] VITALS: BP 106/59; PULSE 67; RESP 16; TEMP 97.7; O2SAT 98
[2025-10-02] MEDS ORDERED: ONDA-245 PO (04:41)
== END 2025-10-02 04:46 | disposition home or self-care (01) ==
LOC: ER 03:11
DX: K52.9 Noninfective gastroenteritis and colitis, unspecified (principal); Z88.1 Allergy status to other antibiotic agents; Z88.5 Allergy status to narcotic agent; Z79.899 Other long term (current) drug therapy
CPT/HCPCS: 36415; 80053; 83690; 85025; 96361; 96374; 96375; 99284; J1885; J2405; J2765; J3010; J7030